=== PATIENT | female | born 1995 | race African-American/Black ===

== ENCOUNTER 2016-06-19 12:13 | Outpatient (CLI) | payer OTHER ==
[~2016-06-19 12:13] MED LIST: BENADRYL50 MG PO; CIPROFLOXACIN H10 ML BOTH EYES; CLINDAMYCIN HC300 MG PO; KEFLEX500 MG PO; MACROBID100 MG PO; MINOCIN50 MG PO; MIRALAX17 GM PO; NAPROXEN500 MG PO; NASONEX17 GM BOTH NARES; OCUFLOX 0.100 DROP/5 BOTH EYES; PRENATAL TABLE1 EAC3 PO; PRENATAL TABLE1 EACH PO; PYRIDIUM100 MG PO; PYRIDIUM200 MG PO; ULTRAM50 MG PO; VITAFOL-OB+DHA1 EACH PO; ZOFRAN ODT4 MG PO; ZOFRAN4 MG PO
[2016-06-19 12:37] VITALS: BP 135/64
[2016-06-19 13:45] LABS: ADD MIUA? YES; BILIRUBIN NEGATIVE; BLOOD NEGATIVE; COLOR YELLOW ((YELLOW)); GLUCOSE (STRIP) NEGATIVE; KETONES NEGATIVE; LEUKOCYTES TRACE; NITRITE NEGATIVE; PROTEIN (STRIP) 30; SPECIFIC GRAVITY 1.028 (1.000-1.030)
[2016-06-19 13:49] LABS: BACTERIA NONE SEEN /HPF; EPITHELIAL CELLS RARE /HPF; MUCUS 2+ /LPF; RED BLOOD CELLS 0-5 /HPF (0-5); UCUL ADDED? NO; WHITE BLOOD CELLS 0-5 /HPF (0-5)
[2016-06-19 14:41] LABS: EOSINOPHIL (%) 0.4 % (0-5); HEMATOCRIT 31.2 % (36.0-46.0); IMMATURE GRANULOCYTE (%) 0.7 % (0.0-0.7); IMMATURE GRANULOCYTE COUNT 0.1 K/uL; LYMPHOCYTE COUNT 1.4 K/uL (1.0-2.8); MCH 26.3 PG (29.0-34.0); MCHC 31.7 G/DL (30.0-36.0); MCV 82.8 FL (83-99); MONOCYTE (%) 4.6 % (3-12); MONOCYTE COUNT 0.4 K/uL (0-0.8); NEUTROPHIL (%) 78.4 % (45-76); PLATELET COUNT 208 K/uL (156-360); RBC DIS.WIDTH-CV 13.3 % (11.8-14.6); RBC DIS.WIDTH-SD 40.3 % (39-53); RED BLOOD COUNT 3.77 M/uL (3.80-5.20); WHITE BLOOD COUNT 8.9 K/uL (4.1-10.2)
[2016-06-19 14:47] LABS: AMPHETAMINES QUANT VALUE 0 NG/ML; BARBITUATES QUANT VALUE 0 NG/ML; BENZODIAZEPINES QUANT VALUE 0 NG/ML; BENZODIAZEPINES, URINE SCREEN Negative (200 ng/mL); MARIJUANA QUANT VALUE 0 NG/ML; OPIATES QUANTITATIVE VALUE 0 NG/ML; PHENCYCLIDINE QUANT VALUE 0 NG/ML
[2016-06-19 16:42] VITALS: BP 117/63
[2016-06-19 21:01] VITALS: BP 115/69
[2016-06-19 23:27] VITALS: BP 110/51
[2016-06-20 03:01] VITALS: BP 107/54
[2016-06-20 07:20] VITALS: BP 109/58
[2016-06-22 13:25] LABS: CHLAMYDIA TRACHOMATIS NEGATIVE; NEISSERIA GONORRHOEAE NEGATIVE
== END 2016-06-20 08:15 | disposition home or self-care (01) ==
LOC: LDRP-OP 12:13 → 2WEST 12:14
PROVIDERS: Midwife
DX: O26.853 Spotting complicating pregnancy, third trimester (principal); O26.893 Other specified pregnancy related conditions, third trimester; Z3A.34 34 weeks gestation of pregnancy; O09.33 Supervision of pregnancy with insufficient antenatal care, third trimester
CPT/HCPCS: 59025; 76815; 80306 90; 81003; 82950; 83030; 85025; 86850; 86900; 86901; 87491; 87591; 87653; G0378; J0702; J2790; J7120

== ENCOUNTER 2016-07-22 00:57 | Inpatient (IN) | payer OTHER ==
[~2016-07-22] VITALS: Ht 165.1 cm; Wt 61.6 kg
[2016-07-22] VITALS (10 sets, daily range): BP systolic 89–142; BP diastolic 50–82
[2016-07-22] MEDS ORDERED: IBUPROFEN800 MG PO (02:38)
[2016-07-22 03:42] LABS: EOSINOPHIL (%) 0.2 % (0-5); HEMATOCRIT 29.7 % (36.0-46.0); IMMATURE GRANULOCYTE (%) 0.8 % (0.0-0.7); IMMATURE GRANULOCYTE COUNT 0.1 K/uL; INSTRUMENT ABS NEUTROPHIL CT 10.9 K/uL; LYMPHOCYTE COUNT 1.2 K/uL (1.0-2.8); MCH 25.4 PG (29.0-34.0); MCHC 31.6 G/DL (30.0-36.0); MCV 80.3 FL (83-99); MEAN PLAT.VOLUME 8.4 uM^3 (9.5-12.4); MONOCYTE (%) 7.4 % (3-12); NEUTROPHIL (%) 82.2 % (45-76); NEUTROPHIL COUNT 10.9 K/uL (1.8-6.4); PLATELET COUNT 213 K/uL (156-360); RBC DIS.WIDTH-CV 14.5 % (11.8-14.6); WHITE BLOOD COUNT 13.3 K/uL (4.1-10.2)
[2016-07-23 06:57] LABS: EOSINOPHIL (%) 0.9 % (0-5); EOSINOPHIL COUNT 0.1 K/uL (0-0.3); HEMATOCRIT 29.2 % (36.0-46.0); IMMATURE GRANULOCYTE (%) 0.7 % (0.0-0.7); IMMATURE GRANULOCYTE COUNT 0.1 K/uL; INSTRUMENT ABS NEUTROPHIL CT 8.7 K/uL; LYMPHOCYTE COUNT 2.8 K/uL (1.0-2.8); MCH 24.7 PG (29.0-34.0); MCHC 30.5 G/DL (30.0-36.0); MCV 81.1 FL (83-99); MEAN PLAT.VOLUME 8.6 uM^3 (9.5-12.4); MONOCYTE (%) 8.4 % (3-12); MONOCYTE COUNT 1.1 K/uL (0-0.8); NEUTROPHIL (%) 68.1 % (45-76); NEUTROPHIL COUNT 8.7 K/uL (1.8-6.4); PLATELET COUNT 231 K/uL (156-360); RBC DIS.WIDTH-CV 14.4 % (11.8-14.6); RBC DIS.WIDTH-SD 42.5 % (39-53); WHITE BLOOD COUNT 12.8 K/uL (4.1-10.2)
[2016-07-23 07:44] VITALS: BP 100/64
[2016-07-23] MEDS ORDERED: CHROMAGEN SOFT1 EACH PO (09:58)
[2016-07-23 15:00] VITALS: BP 102/51
[2016-07-23 23:46] VITALS: BP 81/44
[2016-07-24 07:56] VITALS: BP 106/62
== END 2016-07-24 14:30 | disposition home or self-care (01) | DRG 775 ==
LOC: LDRP-OP 00:57 → 2WEST 00:58 → LDRP-OP 08-29 08:21
PROVIDERS: Obstetrics & Gynecology
DX: O71.4 Obstetric high vaginal laceration alone (principal); O36.0930 Maternal care for other rhesus isoimmunization, third trimester, not applicable or unspecified; Z37.0 Single live birth; O99.02 Anemia complicating childbirth; Z3A.39 39 weeks gestation of pregnancy; D50.9 Iron deficiency anemia, unspecified
CPT/HCPCS: 85025; 87653; J1050

== ENCOUNTER 2017-06-29 17:24 | Emergency (ER) | payer SELFPAY ==
[~2017-06-29] VITALS: Ht 165.1 cm; Wt 54.0 kg
[~2017-06-29 17:24] MED LIST changes: +CHROMAGEN SOFT1 EACH PO; +IBUPROFEN800 MG PO
[2017-06-29 20:26] LABS: APPEARANCE SL.HAZY ((CLEAR)); BILIRUBIN NEGATIVE; BLOOD NEGATIVE; COLOR YELLOW ((YELLOW)); GLUCOSE (STRIP) NEGATIVE; KETONES NEGATIVE; LEUKOCYTES SMALL; NITRITE NEGATIVE; PROTEIN (STRIP) 30; SPECIFIC GRAVITY 1.029 (1.000-1.030)
[2017-06-29 21:21] LABS: BACTERIA NONE SEEN /HPF; CALCIUM OXALATE CRYSTALS 3+ /HPF; EPITHELIAL CELLS 1+ /HPF; MUCUS TRACE /LPF; RED BLOOD CELLS 0-5 /HPF (0-5); UCUL ADDED? NO; WHITE BLOOD CELLS 0-5 /HPF (0-5)
[2017-06-29 21:21] LABS: SOURCE SWAB
[2017-06-29 21:47] VITALS: BP 110/64
== END 2017-06-29 21:47 | disposition home or self-care (01) ==
LOC: RME 17:24 → EME 17:24 → RME 21:47
PROVIDERS: Physician Assistant
DX: R30.0 Dysuria (principal)
CPT/HCPCS: 81003; 84702; 87210; 87491; 87591; 99281; 99284; J0696

== ENCOUNTER 2017-07-27 18:25 | Emergency (ER) | payer SELFPAY ==
[~2017-07-27] VITALS: Ht 165.1 cm; Wt 52.5 kg
[2017-07-27 19:45] VITALS: BP 116/75
== END 2017-07-27 19:47 | disposition home or self-care (01) ==
LOC: EME 18:25
DX: L30.9 Dermatitis, unspecified (principal); Z20.2 Contact with and (suspected) exposure to infections with a predominantly sexual mode of transmission
CPT/HCPCS: 99281; 99283

== ENCOUNTER → 2017-09-13 | Emergency (ER) | payer OTHER ==
[~2017-09-13] VITALS: Ht 165.1 cm; Wt 54.2 kg
[~2017-09-13] MED LIST changes: +NEOMYCIN-POLYMY10 M1 BOTH EARS; +TETCAINE15 ML RIGHT EAR
[2017-09-13 23:50] VITALS: BP 117/70
== END | disposition home or self-care (01) ==
LOC: EME 19:39
DX: H60.91 Unspecified otitis externa, right ear (principal)
CPT/HCPCS: 99281; 99284